=== PATIENT | female | born 1995 | race African-American/Black ===

== ENCOUNTER 2021-07-25 09:06 | Emergency (ER) | payer OTHER ==
[2021-07-25 09:14] VITALS: BP 122/84; PULSE 81; TEMP 98.5; BMI 23.5
[2021-07-25] MEDS ORDERED: IBUPROFEN 600 MG TABLET (FP) PO ONE (09:35)
[2021-07-25] MEDS ORDERED: IBUPROFEN 400 MG TABLET (FP) PO ONE (09:56)
== END 2021-07-25 11:22 | disposition home or self-care (01) ==
LOC: JER 09:06
DX: S92.312A Displaced fracture of first metatarsal bone, left foot, initial encounter for closed fracture (principal); W01.0XXA Fall on same level from slipping, tripping and stumbling without subsequent striking against object, initial encounter; Y92.9 Unspecified place or not applicable
CPT/HCPCS: 73610-TC-LT-FY; 73630-TC-LT; 99283-25

== ENCOUNTER 2022-06-15 17:52 | Emergency (ER) | payer OTHER ==
[2022-06-15 17:57] VITALS: BP 122/78; PULSE 65; RESP 17; TEMP 97.9; BMI 23.5
[2022-06-15] MEDS ORDERED: KETOROLAC TROMETHAMINE 30 MG/1 ML VIAL IVPUSH ONE (18:49)
[2022-06-15] MEDS ORDERED: METOCLOPRAMIDE HCL INJECTION 10 MG/2 ML VIAL IVPUSH ONE (18:49)
[2022-06-15] MEDS ORDERED: SODIUM CHLORIDE 0.9% 500 ML INFUS.BAG IV ONE (18:49)
[2022-06-15] MEDS ORDERED: METOCLOPRAMIDE HCL INJECTION 10 MG/2 ML VIAL ONE (19:26)
[2022-06-15] MEDS ORDERED: KETOROLAC TROMETHAMINE 30 MG/1 ML VIAL ONE (19:26)
== END 2022-06-15 20:41 | disposition home or self-care (01) ==
LOC: JERFT 17:52 → JER 17:52 → JERFT 20:41
PROC: 3E033GC Introduction of Other Therapeutic Substance into Peripheral Vein, Percutaneous Approach (ICD-10-PCS; principal; 2022-06-15)
PROC: 3E0333Z Introduction of Anti-inflammatory into Peripheral Vein, Percutaneous Approach (ICD-10-PCS; 2022-06-15)
PROC: 3E033GC Introduction of Other Therapeutic Substance into Peripheral Vein, Percutaneous Approach (ICD-10-PCS; 2022-06-15)
DX: G43.909 Migraine, unspecified, not intractable, without status migrainosus (principal)
CPT/HCPCS: 99284-25